=== PATIENT | female | born 1975 | race American Indian/Alaskan Native ===

== ENCOUNTER 2020-09-18 10:55 | Emergency (ER) | payer SELFPAY ==
--- NOTE | 2020-09-18 11:22 | Emergency Department Report ---
Blank Doc - Documentation Documentation: 45-year-old female that presents with abdominal pain with n/v. This initial assessment/diagnostic orders/clinical plan/treatment(s) is/are subject to change based on patient's health status, clinical progression and re- assessment by fellow clinical providers in the ED. Further treatment and workup at subsequent clinical providers discretion. Patient/guardians urged not to elope from the ED as their condition may be serious if not clinically assessed and managed. Initial orders include: 1- Patient sent to [facility] for further evaluation and treatment 2- labs 3- UA
[2020-09-18 11:23] VITALS: BP 99/63
[2020-09-18] MEDS ORDERED: SODIUM CHLORIDE 0.9% 1000 ML 1,000 ML IV ONE (11:46)
[2020-09-18] MEDS ORDERED: MORPHINE 4 MG/1 ML INJ IV ONE ×2 (11:46→16:15)
[2020-09-18] MEDS ORDERED: ONDANSETRON 4 MG/2 ML INJ IV ONE (11:46)
--- NOTE | 2020-09-18 11:49 | Emergency Department Report ---
ED Abdominal Pain HPI - General Chief Complaint: Abdominal Pain Stated Complaint: GALLSTONES; BELLY PAIN Time Seen by Provider: 09/18/20 11:21 Source: patient Mode of arrival: Ambulatory Limitations: No Limitations - History of Present Illness Initial Comments: Patient is 45 years old female with no significant past medical history except for heart attack per Patient report and stated that she required to take aspirin daily. Patient presented to the ER complaining of right upper quadrant abdominal pain since yesterday. Patient described her pain as sharp with no radiation. Patient stated that pain associated with nausea and vomiting. Patient stated that she has some chills but no fever. Patient stated that she has similar pain like this 2 months ago and it went away by itself however the intensity at this time is more than before. Patient denied any chest pain, shortness of breath or cough. MD Complaint: abdominal pain -: days(s) (2) Location: RUQ Radiation: none Migration to: no migration Severity: moderate - Related Data Allergies Allergy/AdvReac Type Severity Reaction Status Date / Time ibuprofen Allergy Vomiting Verified 09/18/20 11:15 ED Review of Systems ROS: Stated complaint: GALLSTONES; BELLY PAIN Other details as noted in HPI Comment: All other systems reviewed and negative Constitutional: chills. denies: fever ENT: denies: throat pain, dental pain Respiratory: denies: cough, orthopnea, shortness of breath, SOB with exertion, SOB at rest Cardiovascular: denies: chest pain, palpitations Gastrointestinal: abdominal pain, nausea, vomiting. denies: diarrhea, constipation, hematemesis, melena, hematochezia Musculoskeletal: denies: back pain Neurological: denies: headache, weakness, numbness, paresthesias, confusion, abnormal gait ED Past Medical Hx - Past Medical History Hx Heart Attack/AMI: Yes (X 2) - Surgical History Hx Coronary Stent: Yes - Social History Smoking Status: Current Some Day Smoker ED Physical Exam - General Limitations: No Limitations General appearance: alert, in distress (due to pain) - Head Head exam: Present: atraumatic, normocephalic, normal inspection - Eye Eye exam: Present: normal appearance - ENT ENT exam: Present: mucous membranes dry - Neck Neck exam: Present: normal inspection, full ROM. Absent: tenderness, meningismus - Respiratory Respiratory exam: Present: normal lung sounds bilaterally - Cardiovascular Cardiovascular Exam: Present: regular rate, normal rhythm, normal heart sounds - GI/Abdominal GI/Abdominal exam: Present: soft, tenderness (RUQ), normal bowel sounds. Absent: distended, guarding, rebound, rigid, organomegaly, mass, bruit, pulsatile mass, hernia - Extremities Exam Extremities exam: Present: normal inspection, full ROM, normal capillary refill. Absent: tenderness, pedal edema, calf tenderness - Back Exam Back exam: Present: normal inspection, full ROM. Absent: CVA tenderness (R), CVA tenderness (L) - Neurological Exam Neurological exam: Present: alert, oriented X3, CN II-XII intact, normal gait, reflexes normal. Absent: motor sensory deficit - Psychiatric Psychiatric exam: Present: normal mood - Skin Skin exam: Present: warm, intact, normal color ED Course Vital Signs 09/18/20 11:20 Temperature 98.9 F Pulse Rate 76 Respiratory 22 Rate Blood Pressure 99/63 O2 Sat by Pulse 97 Oximetry ED Medical Decision Making - Lab Data Result diagrams: 09/18/20 11:48 09/18/20 11:48 - Radiology Data Radiology results: report reviewed - Medical Decision Making Patient is 45 years old female with no significant past medical history except for heart attack per Patient report and stated that she required to take aspirin daily. Patient presented to the ER complaining of right upper quadrant abdominal pain since yesterday. Patient described her pain as sharp with no radiation. Patient stated that pain associated with nausea and vomiting. Patient stated that she has some chills but no fever. Patient stated that she has similar pain like this 2 months ago and it went away by itself however the i ntensity at this time is more than before. Patient denied any chest pain, shortness of breath or cough. Patient received morphine and Zofran. Patient stated that she is feeling much better. Labs unremarkable. Ultrasound of the gallbladder showed sludge but there is no stone however the CT abdomen and pelvis showed a stone in the neck of the gallbladder. No evidence of cholecystitis. Patient strongly informed to follow-up with surgeon in the next 2 to 3 days and to return to the ER if symp toms are not improved. Patient given prescription for tramadol and Zofran. Critical care attestation.: If time is entered above; I have spent that time in minutes in the direct care of this critically ill patient, excluding procedure time. ED Disposition Clinical Impression: Abdominal pain, Gallstone Disposition: DC-01 TO HOME OR SELFCARE Is pt being admited?: No Condition: Stable Instructions: Abdominal Pain (ED), Cholelithiasis, Abdominal Pain, Adult, [id number] Referrals: PRIMARY CARE, [Primary Care Provider] - 3-5 Days ERIN COLON MD [Staff Physician] - 3-5 Days
[2020-09-18 12:03] LABS: Basophils % (Auto) 0.2 % (0.0-1.8); Eosinophils # (Auto) 0.1 K/mm3 (0.0-0.4); Eosinophils % (Auto) 0.8 % (0.0-4.3); Hematocrit 33.5 % (30.3-42.9); Hemoglobin 11.2 gm/dl (10.1-14.3); Lymphocytes # (Auto) 2.7 K/mm3 (1.2-5.4); Lymphocytes % (Auto) 28.3 % (13.4-35.0); Mean Corpuscular HGB Conc 33 % (30-34); Mean Corpuscular Volume 98 fl (79-97); Monocytes # (Auto) 0.6 K/mm3 (0.0-0.8); Monocytes % (Auto) 6.5 % (0.0-7.3); Platelet Count 353 K/mm3 (140-440); Red Blood Count 3.43 M/mm3 (3.65-5.03); Red Cell Distribution Width 16.2 % (13.2-15.2)
[2020-09-18 12:24] LABS: Alanine Aminotransferase 13 units/L (7-56); Albumin 3.6 g/dL (3.9-5); Blood Urea Nitrogen 5 mg/dL (7-17); Hemolysis Index 2
[2020-09-18 12:35] LABS: BUN/Creatinine Ratio 7
[2020-09-18 13:29] LABS: Bacteria,Urine 1+ /HPF (Negative); Bilirubin,Urine NEG (Negative); Blood,Urine MOD (Negative); Color,Urine Yellow (Yellow); Mucus,Urine FEW /HPF; Protein,Urine <15 mg/dL mg/dL (Negative); Urobilinogen,Urine < 2.0 mg/dL (<2.0)
[2020-09-18] MEDS ORDERED: POTASSIUM CHLORIDE ER 20 MEQ TAB PO ONE (14:15)
--- NOTE | 2020-09-18 14:57 | Ultrasound Report ---
ULTRASOUND ABDOMEN, LIMITED (RIGHT UPPER QUADRANT) INDICATION: RUQ PAIN. COMPARISON: None available. FINDINGS: Pancreas: Visualized portion shows no significant abnormality. Liver: Normal. Gallbladder: Minimal gallbladder sludge without stones Bile ducts: Normal. Common Bile Duct measures 5-6 mm. Free fluid: None. Additional Findings: None. IMPRESSION: 1. Mild gallbladder sludge without stones Signer Name: Elton Carmona MD Signed: 09/18/2020 2:52 PM Workstation Name: [id number]
[2020-09-18] MEDS ORDERED: MORPHINE 2 MG/1 ML INJ IM ONE (16:21)
--- NOTE | 2020-09-18 16:27 | Cat Scan Report ---
CT OF THE ABDOMEN AND PELVIS WITHOUT INTRAVENOUS CONTRAST INDICATION / CLINICAL INFORMATION: Abdominal pain. TECHNIQUE: All CT scans at this location are performed using CT dose reduction for ALARA by means of automated e xposure control. COMPARISON: None available. FINDINGS: ABDOMEN: High density material in the stomach and colon may be related to medication rather than oral contrast. There is a 6 to 7 mm ovoid calcification in the gallbladder neck. The gallbladder wall is borderline thickened and indistinct. The liver, spleen, bile ducts, pancreas, adrenal glands, kidneys and bowel demonstrate no significant abnormality. No adenopathy is seen. There is mild bibasilar dep endent atelectasis. PELVIS: The distal ureters and urinary bladder are normal. The uterus and adnexal regions are unremar kable. A normal appendix is present and there is no evidence of diverticulitis. No abnormal mass or f luid collection is seen. I do not identify a hernia. There are moderately advanced degenerative ortiz es at the lumbosacral junction. IMPRESSION: Single gallstone in the gallbladder neck. Borderline gallbladder wall thickening. Hepatob iliary scintigraphy may be helpful in excluding acute cholecystitis. Signer Name: Dewey Pablo MD Signed: 09/18/2020 4:22 PM Workstation Name: [id number]
== END 2020-09-18 18:30 | disposition home or self-care (01) ==
LOC: ED 10:55
DX: K80.80 Other cholelithiasis without obstruction (principal); Z98.890 Other specified postprocedural states; Z88.8 Allergy status to other drugs, medicaments and biological substances
CPT/HCPCS: 36415; 74176; 76705; 80053; 81001; 82140; 83690; 84703; 85025; 87086; 96361; 96372; 96374; 96375; 99284; J2270; J2405; J7030

== ENCOUNTER 2020-09-26 18:42 | Emergency (ER) | payer SELFPAY ==
[2020-09-26 19:12] VITALS: BP 156/93
[2020-09-26] MEDS ORDERED: ONDANSETRON 4 MG ODT TAB PO ONE (22:02)
[2020-09-26] MEDS ORDERED: FAMOTIDINE 20 MG TAB PO ONE (22:02)
[2020-09-26] MEDS ORDERED: oxyCODONE /ACETAMINOPHEN 5-325MG TAB PO ONE (22:03)
[2020-09-26 22:59] LABS: Basophils % (Auto) 0.3 % (0.0-1.8); Eosinophils # (Auto) 0.1 K/mm3 (0.0-0.4); Eosinophils % (Auto) 1.4 % (0.0-4.3); Hematocrit 35.8 % (30.3-42.9); Hemoglobin 12.1 gm/dl (10.1-14.3); Lymphocytes # (Auto) 3.2 K/mm3 (1.2-5.4); Lymphocytes % (Auto) 34.4 % (13.4-35.0); Mean Corpuscular HGB Conc 34 % (30-34); Mean Corpuscular Volume 97 fl (79-97); Monocytes # (Auto) 0.5 K/mm3 (0.0-0.8); Monocytes % (Auto) 5.9 % (0.0-7.3); Platelet Count 516 K/mm3 (140-440); Red Blood Count 3.71 M/mm3 (3.65-5.03); Red Cell Distribution Width 16.3 % (13.2-15.2)
--- NOTE | 2020-09-26 23:09 | Ultrasound Report ---
ULTRASOUND ABDOMEN, LIMITED (RIGHT UPPER QUADRANT) INDICATION: RUQ PAIN: CHOLELITHIASIS COMPARISON: Right upper quadrant ultrasound 09/18/2020, CT abdomen and pelvis 09/18/2020 LIMITATIONS: None FINDINGS: Pancreas: Pancreatic tail was not well seen Liver: Mild patchy fatty infiltration without obvious mass or significant enlargement Gallbladder: Gallbladder shows at least one gallstone similar to the findings on CT but not detected on the recent prior ultrasound. Also a change from the prior ultrasound though similar to the CT find ing, there appears to be wall thickening to approximately 4 mm by my measurement and there is the alex earance of fluid within the wall consistent with wall edema. Bile ducts: Normal. Common Bile Duct measures 3 mm. Right Kidney: Visualized portions show no abnormality. Free fluid: None. Additional Findings: None. IMPRESSION: Cholelithiasis with evidence of acute cholecystitis Signer Name: Luis Antonio Olivarez MD Signed: 09/26/2020 11:05 PM Workstation Name: [id number]
[2020-09-26 23:15] LABS: Alanine Aminotransferase 13 units/L (7-56); Albumin 4.1 g/dL (3.9-5); Blood Urea Nitrogen 4 mg/dL (7-17); Calcium 9.4 mg/dL (8.4-10.2); Hemolysis Index 5
[2020-09-26 23:21] LABS: BUN/Creatinine Ratio 7
--- NOTE | 2020-09-27 02:12 | Emergency Department Report ---
ED Abdominal Pain HPI - General Chief Complaint: Abdominal Pain Stated Complaint: ABD PAIN Source: patient Mode of arrival: Ambulatory Limitations: No Limitations - History of Present Illness Initial Comments: Patient is a 45-year-old -[place] female with a history of coronary artery disease s/p UT and PTCA stent placement who presents to the ED with complaint of acute onset persistent epigastric and right upper quadrant pain with nausea and vomiting for the last 1 week, worse in the last 2 days. Patient states that the pain is worse with food intake and in the last 6 hours the pain has worsened such that she has not been able to sleep. Patient states that she was initially evaluated in this ED a few days ago and diagnosed with cholelithiasis and was given a referral to the general surgeon with whom she has not set up any follow-up appointment. Patient states that she has only been taking nausea medicine but never got the pain medication filled. Patient states that she was not able to sleep because of worsening right upper quadrant pain that radiates to the epigastric area with sharpness. Patient denies fever, chills, dysuria, urinary frequency and urgency, diarrhea, chest pain or shortness of breath, cough, traumatic injury or heavy lifting, vaginal bleeding, vaginal discharge, hematemesis, or diarrhea. MD Complaint: abdominal pain (RUQ abdominal pain), other (Nausea and vomiting) -: Sudden, week(s) (1) Location: RUQ Radiation: RUQ, epigastric Migration to: RUQ, epigastric Severity scale (0 -10): 8 Quality: aching, sharp Consistency: constant Improves With: nothing Worsens With: eating, vomiting Context: other (Recently diagnosed with Gallstones) Associated Symptoms: denies other symptoms, nausea, vomiting. denies: diarrhea, fever, chills, constipation, dysuria, hematemesis, hematochezia, melena, hematuria, anorexia, syncope - Related Data LMP Date: 09/11/20 Previous Rx's Medication Instructions Recorded Last Taken Type Ondansetron [Zofran Odt] 4 mg PO Q8HR PRN #14 tab.rapdis 09/18/20 Unknown Rx traMADoL [Ultram 50 MG tab] 50 mg PO Q4HR PRN #14 tablet 09/18/20 Unknown Rx Allergies Allergy/AdvReac Type Severity Reaction Status Date / Time ibuprofen Allergy Vomiting Verified 01/07/21 11:15 ED Review of Systems ROS: Stated complaint: ABD PAIN Other details as noted in HPI Constitutional: denies: chills, fever Eyes: denies: eye pain, eye discharge, vision change ENT: denies: ear pain, throat pain Respiratory: denies: cough, shortness of breath, wheezing Cardiovascular: denies: chest pain, palpitations Endocrine: no symptoms reported Gastrointestinal: abdominal pain (RUQ and epigastric pain), nausea. denies: diarrhea Genitourinary: denies: urgency, dysuria, discharge Musculoskeletal: denies: back pain, joint swelling, arthralgia Skin: denies: rash, lesions Neurological: denies: headache, weakness, paresthesias Psychiatric: denies: anxiety, depression Hematological/Lymphatic: denies: easy bleeding, easy bruising ED Past Medical Hx - Past Medical History Hx Heart Attack/AMI: Yes (X 2) - Surgical History Hx Coronary Stent: Yes - Social History Smoking Status: Never Smoker Substance Use Type: None - Medications Home Medications: Home Medications Medication Instructions Recorded Confirmed Last Taken Type Ondansetron [Zofran Odt] 4 mg PO Q8HR PRN #14 tab.rapdis 09/18/20 Unknown Rx traMADoL [Ultram 50 MG tab] 50 mg PO Q4HR PRN #14 tablet 09/18/20 Unknown Rx ED Physical Exam - General Limitations: No Limitations General appearance: alert, in no apparent distress - Head Head exam: Present: atraumatic, normocephalic, normal inspection - Eye Eye exam: Present: normal appearance, PERRL, EOMI Pupils: Present: normal accommodation - ENT ENT exam: Present: normal exam, normal orophraynx, mucous membranes moist, TM's normal bilaterally, normal external ear exam - Neck Neck exam: Present: normal inspection, full ROM - Respiratory Respiratory exam: Present: normal lung sounds bilaterally. Absent: respiratory distress, wheezes, rales, rhonchi, chest wall tenderness, accessory muscle use, decreased breath sounds - Cardiovascular Cardiovascular Exam: Present: regular rate, normal rhythm, normal heart sounds. Absent: systolic murmur, diastolic murmur, rubs, gallop - GI/Abdominal GI/Abdominal exam: Present: soft, tenderness (Palpable right upper quadrant tenderness with a positive Naidu sign.), normal bowel sounds. Absent: guarding, rebound, hyperactive bowel sounds, hypoactive bowel sounds, organomegaly, mass - Extremities Exam Extremities exam: Present: normal inspection, full ROM, normal capillary refill - Back Exam Back exam: Present: normal inspection, full ROM. Absent: tenderness, CVA tenderness (R), CVA tenderness (L), muscle spasm, paraspinal tenderness, vertebral tenderness - Neurological Exam Neurological exam: Present: alert, oriented X3, CN II-XII intact, normal gait, reflexes normal - Psychiatric Psychiatric exam: Present: normal affect, normal mood - Skin Skin exam: Present: warm, dry, intact, normal color. Absent: rash ED Course Vital Signs 09/26/20 19:02 Temperature 98.2 F Pulse Rate 91 H Respiratory 18 Rate Blood Pressure 156/93 O2 Sat by Pulse 100 Oximetry ED Medical Decision Making - Lab Data Result diagrams: 09/26/20 22:15 09/26/20 22:15 - Radiology Data Radiology results: report reviewed, image reviewed - Medical Decision Making This is a 45-year-old -[place] female with a history of coronary artery disease s/p UT and PTCA stent placement who presents to the ED with complaint of acute onset persistent epigastric and right upper quadrant pain with nausea and vomiting for the last 1 week, worse in the last 2 days. Patient states that the pain is worse with food intake and in the last 6 hours the pain has worsened such that she has not been able to sleep. Patient states that she was initially evaluated in this ED a few days ago and diagnosed with cholelithiasis and was given a referral to the general surgeon with whom she has not set up any follow- up appointment. Patient states that she has only been taking nausea medicine but never got the pain medication filled. Patient states that she was not able to sleep because of worsening right upper quadrant pain that radiates to the epigastric area with sharpness. In the ED, patient is alert and oriented x3 and is not in distress. Patient however appears to be in significant pain. Patient was treated with antacids, pain medications and antiemetics. Lab test results were reviewed and are all nonactionable. On reevaluation, patient's pain is well controlled medications. The right upper quadrant gallbladder ultrasound showed cholelithiasis with evidence of acute cholecystitis. Patient eloped from the ED while still awaiting the report for gallbladder ultrasound. Initially frantic efforts were made to contact the patient through the phone number listed in her medical record but the foreign was not being picked up by the patient. When the patient was finally traced about 1 hour later, the patient promised return to the ED immediately but did not come back as at the end of the shift at 0600 hrs. - Differential Diagnosis Cholelithiasis, cholecystitis, pancreatitis, GERD, gastroenteritis Critical care attestation.: If time is entered above; I have spent that time in minutes in the direct care of this critically ill patient, excluding procedure time. ED Disposition Clinical Impression: Acute abdominal pain in right upper quadrant, Nausea and vomiting in adult patient Cholelithiasis with acute cholecystitis Qualifiers: Biliary obstruction: without biliary obstruction Qualified Code(s): K80.00 - Calculus of gallbladder with acute cholecystitis without obstruction Disposition: ELOPED Is pt being admited?: Yes Does the pt Need Aspirin: No Condition: Stable Instructions: Cholelithiasis, Cholelithiasis, [id number], Abdominal Pain, Adult, [id number], Abdominal Pain (ED) Referrals: PRIMARY CARE, [Primary Care Provider] - 3-5 Days Time of Disposition: 01:05 Print Language: SCOTTISH
== END 2020-09-27 01:01 | disposition left against medical advice (07) ==
LOC: ED 18:42
DX: K80.00 Calculus of gallbladder with acute cholecystitis without obstruction (principal); I25.2 Old myocardial infarction; Z79.899 Other long term (current) drug therapy; Z79.1 Long term (current) use of non-steroidal anti-inflammatories (NSAID)
CPT/HCPCS: 36415; 76705; 80053; 83690; 84703; 85025; 99283

== ENCOUNTER 2020-12-05 10:06 | Emergency (ER) | payer OTHER ==
[2020-12-05] MEDS ORDERED: ASPIRIN 325 MG TAB PO ONE (10:50)
--- NOTE | 2020-12-05 10:50 | Event Note ---
ED Screening Note ED Screening Note: bilateral feet numbness that began three months states that she saw pain management has not seen a primary care doctor +CP substernal two weeks ago upper back pain a month ago no fever no cough no n/v/d no SOB PMHx CAD with stent, HLD adverse reaction to ibuprofen +smoker This initial assessment/diagnostic orders/clinical plan/treatment(s) is/are subject to change based on patients health status, clinical progression and re- assessment by fellow clinical providers in the ED. Further treatment and workup at subsequent clinical providers discretion. Patient/guardian urged not to elope from the ED as their condition may be serious if not clinically assessed and managed. Initial orders include: CP protocol
[2020-12-05 11:03] LABS: Basophils % (Auto) 0.4 % (0.0-1.8); Eosinophils # (Auto) 0.1 K/mm3 (0.0-0.4); Eosinophils % (Auto) 1.7 % (0.0-4.3); Hematocrit 35.9 % (30.3-42.9); Hemoglobin 12.2 gm/dl (10.1-14.3); Lymphocytes # (Auto) 2.6 K/mm3 (1.2-5.4); Mean Corpuscular HGB Conc 34 % (30-34); Mean Corpuscular Volume 98 fl (79-97); Monocytes # (Auto) 0.7 K/mm3 (0.0-0.8); Monocytes % (Auto) 9.4 % (0.0-7.3); Platelet Count 363 K/mm3 (140-440); Red Blood Count 3.68 M/mm3 (3.65-5.03); Red Cell Distribution Width 15.7 % (13.2-15.2)
--- NOTE | 2020-12-05 11:31 | XRay Report ---
CHEST 2 VIEWS INDICATION / CLINICAL INFORMATION: Chest Pain. COMPARISON: None available. FINDINGS: SUPPORT DEVICES: None. HEART / MEDIASTINUM: No significant abnormality. LUNGS / PLEURA: No significant pulmonary or pleural abnormality. No pneumothorax. ADDITIONAL FINDINGS: No significant additional findings. IMPRESSION: 1. No acute findings. Signer Name: Cornelio Matias MD Signed: 12/05/2020 11:27 AM Workstation Name: [id number]
[2020-12-05 11:43] LABS: Alanine Aminotransferase 16 units/L (7-56); Albumin 3.6 g/dL (3.9-5); Blood Urea Nitrogen 2 mg/dL (7-17); Calcium 8.7 mg/dL (8.4-10.2); Hemolysis Index 3
[2020-12-05 12:28] LABS: BUN/Creatinine Ratio 4
[2020-12-05] MEDS ORDERED: FAMOTIDINE 20 MG TAB PO ONE (12:44)
[2020-12-05] MEDS ORDERED: ACETAMINOPHEN 325 MG TAB PO ONE (12:44)
--- NOTE | 2020-12-05 12:47 | Emergency Department Report ---
ED General Adult HPI - General Chief complaint: Pain General Stated complaint: my feet are numb, my back hurts PUI?: No Time Seen by Provider: 12/05/20 10:46 Source: patient, RN notes reviewed Mode of arrival: Ambulatory Limitations: No Limitations - History of Present Illness Initial comments: The patient was evaluated in the emergency department for symptoms described in the history of present illness. He/she was evaluated in the context of the global COVID-19 pandemic, which necessitated consideration that the patient mi ght be at risk for infection with the virus that causes COVID-19. Institutional protocols and algorithms that pertain to the evaluation of patients at risk for COVID-19 are in a state of rapid change based on information released by regulatory bodies including the CDC and federal and state organizations. These policies and algorithms were followed during the patient's care in the emergency department. Please note that these policies, procedures and recommendations changed on a rapid basis. During the history and physical examination, I am chaperoned by Karl Aburto \This is a 45-year-old female. She is not known to myself previously. The patient does not have a local primary care doctor or library director. She has a pain specialist that she sees. She recently moved here from [place]. The patient presents to the ER with 2 complaints. Her first complaint is bilateral plantar foot numbness, present for months. There is no lower extremity pain. Her numbness is constant, does not radiate anywhere, does not have exacerbating or relieving factors. She denies focal extremity weakness, bladder or bowel retention incontinence and saddle anesthesia. Her numbness is not worsened today. Her next complaint is right sided posterior trapezius pain. This pain has been present for about 2 weeks. It is throbbing and aching. It increases with palpation and decreases with rest. Patient denies headache, midline neck pain, abdominal pain, vomiting, diaphoresis, exertional shortness of breath, , travel, surgery, personal history of DVT and pulmonary embolism risk factors. On review systems, patient endorses left anterior chest wall pain, which was present on Tuesday and Tuesday of this week, and which has been resolved for the past 2 to 3 days. The pain does not radiate to the back, arms or neck. It is not associate with vomiting, diaphoresis or exertional shortness of breath. Patient reportedly had a myocardial infarction last year, which she was treated at one of the [facility]. She does not know what specific hospital she was treated at. She is not quite sure what medications she takes. She is not certain if she is taken aspirin. She denies travel, surgery, oral contraceptive use, posterior leg pain and leg swelling, and denies personal DVT and pulmonary embolism risk factors. Also denies family history of coronary artery disease that she is aware of. -: Gradual, days(s), week(s), month(s) Location: chest, back, left, right, lower extremity Radiation: non-radiation Severity scale (0 -10): 9 Quality: other Consistency: other Improves with: other Worsens with: other - Related Data Previous Rx's Medication Instructions Recorded Last Taken Type Ondansetron [Zofran Odt] 4 mg PO Q8HR PRN #14 tab.rapdis 09/18/20 Unknown Rx Acetaminophen [Tylenol] 650 mg PO Q6HR PRN #30 capsule 12/05/20 Unknown Rx Clopidogrel [Plavix] 75 mg PO QDAY #30 tablet 12/05/20 Unknown Rx Allergies Allergy/AdvReac Type Severity Reaction Status Date / Time ibuprofen Allergy Vomiting Verified 09/18/20 11:15 ED Review of Systems ROS: Stated complaint: RISA FEET/RT SHOULDER PAIN Other details as noted in HPI Constitutional: other (Denies loss of taste and smell). denies: fever, malaise, weakness Eyes: denies: eye discharge ENT: denies: congestion Respiratory: denies: shortness of breath, SOB with exertion, SOB at rest Cardiovascular: other (Chest wall pain) Gastrointestinal: denies: abdominal pain, nausea, vomiting, hematemesis, melena, hematochezia Musculoskeletal: myalgia Neurological: numbness (Bilateral plantar foot numbness) Hematological/Lymphatic: denies: easy bleeding ED Past Medical Hx - Past Medical History Previous Medical History?: Yes Hx Heart Attack/AMI: Yes (X 2) - Surgical History Past Surgical History?: Yes Hx Coronary Stent: Yes - Social History Smoking Status: Never Smoker Substance Use Type: None - Medications Home Medications: Home Medications Medication Instructions Recorded Confirmed Last Taken Type Ondansetron [Zofran Odt] 4 mg PO Q8HR PRN #14 tab.rapdis 09/18/20 Unknown Rx Acetaminophen [Tylenol] 650 mg PO Q6HR PRN #30 capsule 12/05/20 Unknown Rx Clopidogrel [Plavix] 75 mg PO QDAY #30 tablet 12/05/20 Unknown Rx ED Physical Exam - General Limitations: No Limitations General appearance: alert, in no apparent distress, obese - Head Head exam: Present: atraumatic, normocephalic - Eye Eye exam: Present: normal appearance, EOMI. Absent: nystagmus - ENT ENT exam: Present: normal exam, normal orophraynx, mucous membranes moist, normal external ear exam - Neck Neck exam: Present: normal inspection, full ROM. Absent: tenderness, meni ngismus - Respiratory Respiratory exam: Present: normal lung sounds bilaterally, chest wall tenderness. Absent: respiratory distress, wheezes, rales, rhonchi, stridor, decreased breath sounds - Cardiovascular Cardiovascular Exam: Present: regular rate, normal rhythm, normal heart sounds. Absent: bradycardia, tachycardia, irregular rhythm, systolic murmur, diastolic murmur, rubs, gallop - GI/Abdominal GI/Abdominal exam: Present: soft. Absent: distended, tenderness, guarding, r ebound, rigid, pulsatile mass - Extremities Exam Extremities exam: Present: normal inspection, full ROM, other (2+ pulses noted in the bilateral upper and lower extremities. There is no palpable cord. negative Homans sign. Muscular compartments are soft. The pelvis is stable.). Absent: pedal edema, calf tenderness - Back Exam Back exam: Present: normal inspection, full ROM, muscle spasm, paraspinal tenderness (There is reproducible right-sided trapezius tenderness). Absent: tenderness, CVA tenderness (R), CVA tenderness (L), vertebral tenderness - Neurological Exam Neurological exam: Present: alert, oriented X3, normal gait, other (No facial droop. Tongue midline. Extraocular movements intact bilaterally. Facial sensation intact to light touch in V1, V2, V3 distribution bilaterally. 5 and a 5 strength in 4 extremities. Sensation intact to light touch in 4 ext remities.). Absent: motor sensory deficit (Downgoing plantar reflexes bilaterally. Sensation is intact to light touch, tickle, pinch bilateral lower extremities.) - Psychiatric Psychiatric exam: Present: anxious - Skin Skin exam: Present: warm, dry, intact, normal color. Absent: rash ED Course Vital Signs 12/05/20 10:41 Temperature 98.8 F Pulse Rate 84 Respiratory 18 Rate Blood Pressure 155/84 [Right] O2 Sat by Pulse 100 Oximetry - Reevaluation(s) Reevaluation #1: 12/05/20 13:27 Differential diagnosis, including but not limited to: Peripheral neuropathy, trapezius sprain/strain, costochondritis Assessment and plan: 45-year-old female, with a few months of bilateral plantar foot numbness, a few weeks of bilateral posterior trapezius pain, who is not currently tachycardic, tachypneic or hypoxic, who denies DVT and pulmonary embolism risk factors, who is low risk by Wells criteria for pulmonary embolism, PERC negative, reports that she is not with reproducible chest wall pain Patient has equal pulses in the upper and lower extremities, no pulsatile abdominal mass, and an unremarkable x-ray of the chest, therefore, aortic disease is very unlikely. Given reproducibility, history and physical, do not have a high suspicion for GERD, gastritis, hiatal hernia at this time. Pneumonia is unlikely given history, physical, and x-ray findings. Her EKG is abnormal but she has been chest pain-free for about 3 days. She does have a component of reproducible chest wall tenderness. Her cardiovascular risk factor profile is reviewed and appreciated. Case discussed with cardiology on-call, Harvey Jimenez, working with Dr Jeffries, patient's EKG and laboratory studies were evaluated, and they advised outpatient cardiology follow-up would be reasonable, and did not recommend admission for accelerated cardiac risk ratification, which I think is reasonable. In terms of her bilateral plantar foot numbness, she has appropriate strength and sensation, with a steady gait, with no red flag signs or examination findings to support epidural compression syndrome or AAA, outpatient follow-up. In terms of her right-sided trapezius pain/sprain which is reproducible, ice packs, heat packs, rice therapy, acetaminophen [id number], and outpatient physical therapy. In terms of her chest wall pain, continue current outpatient medications, and follow-up with a library director. Repeat troponin, repeat EKG pending, if unremarkable as anticipated, we will plan to discharge patient to follow-up. 12/05/20 13:45 EKG #2 is unchanged from prior EKG. 12/05/20 14:15 Troponin negative x2. EKG unchanged x2. Patient resting comfortably in stretcher at this time, in no acute distress. She endorses improvement in physical pain. Discharge with outpatient follow-up. ED Medical Decision Making - Lab Data Result diagrams: 12/05/20 10:53 12/05/20 10:53 Vital Signs 12/05/20 10:41 Temperature 98.8 F Pulse Rate 84 Respiratory 18 Rate Blood Pressure 155/84 [Right] O2 Sat by Pulse 100 Oximetry Lab Results 12/05/20 12/05/20 Range/Units 10:53 10:53 WBC 7.2 (4.5-11.0) K/mm3 RBC 3.68 (3.65-5.03) M/mm3 Hgb 12.2 (10.1-14.3) gm/dl Hct 35.9 (30.3-42.9) % MCV 98 H (79-97) fl MCH 33 H (28-32) pg MCHC 34 (30-34) % RDW 15.7 H (13.2-15.2) % Plt Count 363 (140-440) K/mm3 Lymph % (Auto) 36.0 H (13.4-35.0) % [place] % (Auto) 9.4 H (0.0-7.3) % Eos % (Auto) 1.7 (0.0-4.3) % Baso % (Auto) 0.4 (0.0-1.8) % Lymph # (Auto) 2.6 (1.2-5.4) K/mm3 [place] # (Auto) 0.7 (0.0-0.8) K/mm3 Eos # (Auto) 0.1 (0.0-0.4) K/mm3 Baso # (Auto) 0.0 (0.0-0.1) K/mm3 Seg Neutrophils % 52.5 (40.0-70.0) % Seg Neutrophils # 3.8 (1.8-7.7) K/mm3 Sodium 139 (137-145) mmol/L Potassium 3.5 L (3.6-5.0) mmol/L Chloride 107.3 H (98-107) mmol/L Carbon Dioxide 24 (22-30) mmol/L Anion Gap 11 mmol/L BUN 2 L (7-17) mg/dL Creatinine 0.5 L (0.6-1.2) mg/dL Estimated GFR > 60 ml/min BUN/Creatinine Ratio 4 % Glucose 81 (65-100) mg/dL Calcium 8.7 (8.4-10.2) mg/dL Total Bilirubin 0.20 (0.1-1.2) mg/dL AST 23 (5-40) units/L ALT 16 (7-56) units/L Alkaline Phosphatase 152 H (35-129) units/L Troponin T < 0.010 (0.00-0.029) ng/mL Total Protein 6.4 (6.3-8.2) g/dL Albumin 3.6 L (3.9-5) g/dL Albumin/Globulin Ratio 1.3 % - EKG Data EKG shows normal: sinus rhythm Rate: normal - EKG Data 12/05/20 13:26 EKG #1, time of interpretation, 10: 37 AM Sinus rhythm, 78 bpm. Normal axis, normal intervals, borderline high left ventricular voltage, Q waves in the inferior leads, this is an abnormal EKG, the EKG is not a STEMI. There is no prior for comparison. - Radiology Data Radiology results: report reviewed, image reviewed CHEST 2 VIEWS INDICATION / CLINICAL INFORMATION: Chest Pain. COMPARISON: None available. FINDINGS: SUPPORT DEVICES: None. HEART / MEDIASTINUM: No significant abnormality. LUNGS / PLEURA: No significant pulmonary or pleural abnormality. No pneumothorax. ADDITIONAL FINDINGS: No significant additional findings. IMPRESSION: 1. No acute findings. Signer Name: Cornelio Matias MD Signed: 12/05/2020 10:27 AM Workstation Name: [id number] Critical care attestation.: If time is entered above; I have spent that time in minutes in the direct care of this critically ill patient, excluding procedure time. ED Disposition Clinical Impression: Numbness of feet, Trapezius strain, Chest wall pain Disposition: DC-01 TO HOME OR SELFCARE Is pt being admited?: No Does the pt Need Aspirin: No Condition: Good Instructions: Chest Wall Pain, [id number], Muscle Strain, [id number] Additional Instructions: Rest, avoid heavy lifting and strenuous physical activities. Alternate ice packs and heat packs as needed to areas on chest, and bilateral feet for pain. Patient may alternate ice packs, heat packs, and participate in physical activities as tolerated. Patient may benefit from outpatient physical therapy to assist with sensation of numbness in the bilateral feet, and right-sided trapezius pain. Patient may also take [id number] acetaminophen/Tylenol as needed for pain, 650 mg by mouth, with food, every 4-6 hours as needed for pain. Recommend that patient take Plavix, 75 mg daily, and that the patient follow-up with an outpatient library director within the next 3 to 5 days. Local primary care doctor includes the following: Dr Palak Miller Local cardiology includes the following: Dr Marielos Jeffries Please return to the emergency room right away with new pain, worsened pain, migration of pain, projectile vomiting, change in mental status, confusion, inability to tolerate liquid feeds, new, worsened or different symptoms not present on the initial emergency room evaluation. Prescriptions: Clopidogrel [Plavix] 75 mg PO QDAY #30 tablet Acetaminophen [Tylenol] 650 mg PO Q6HR PRN #30 capsule PRN Reason: Pain , Severe (7-10) Referrals: GABRIELLA JEFFRIES MD [Staff Physician] - 3-5 Days CHAN MILLER MD [Staff Physician] - 3-5 Days Forms: Work/School Release Form(ED)
[2020-12-05 18:37] VITALS: BP 142/85
--- NOTE | 2020-12-08 11:07 | Electrocardiograph Report ---
[facility] Test Date: 2020-12-05 Test Time: 10:37:23 Pat Name: YORDAN LEE Department: Room: Gender: F Gaming Manager: VANESSA : 1975 Requested By: LACHELLE BILLINGS Order Number: [id number] Reading MD: Felipe Hernandez Measurements Intervals [place] Rate: 78 P: 55 MD: 147 QRS: 15 QRSD: 85 T: -19 QT: 380 QTc: 432 Interpretive Statements Sinus rhythm Inferior infarct, age indeterminate Anterolateral infarct, age indeterminate No previous ECG available for comparison Electronically Signed On 12-08-2020 8:06:35 PDT by Felipe Hernandez
--- NOTE | 2020-12-08 11:08 | Electrocardiograph Report ---
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
== END 2020-12-05 14:00 | disposition home or self-care (01) ==
LOC: ED 10:06
DX: S46.811A Strain of other muscles, fascia and tendons at shoulder and upper arm level, right arm, initial encounter (principal); R20.0 Anesthesia of skin; R07.89 Other chest pain; I25.2 Old myocardial infarction; Z79.899 Other long term (current) drug therapy; Z88.6 Allergy status to analgesic agent; X58.XXXA Exposure to other specified factors, initial encounter; Y93.89 Activity, other specified; Y92.89 Other specified places as the place of occurrence of the external cause; Y99.8 Other external cause status
CPT/HCPCS: 36415; 71046; 80053; 84484; 85025; 93005